=== PATIENT | male | born 1990 | race Caucasian/White ===

== ENCOUNTER 2016-07-15 15:36 | Emergency (ER) | payer MEDICAID ==
[~2016-07-15] VITALS: Ht 182.9 cm; Wt 97.3 kg
[2016-07-15] MEDS ORDERED: METHOCARBAMOL 1,000 MG in DEXTROSE 5% 100 ML IV ONE (16:30)
[2016-07-15] MEDS ORDERED: KETOROLAC 30 MG/1 ML IVPush ONE (16:30)
[2016-07-15] MEDS ORDERED: SODIUM CHLORIDE FLUSH 10ML SYR IVF ONE (16:30)
[2016-07-15] MEDS ORDERED: KETOROLAC 30 MG/1 ML ONE ×2 (16:46→16:48)
[2016-07-15 17:43] VITALS: BP 120/60
== END 2016-07-15 17:44 | disposition home or self-care (01) ==
LOC: ED 17:10
DX: S39.012A Strain of muscle, fascia and tendon of lower back, initial encounter (principal); X58.XXXA Exposure to other specified factors, initial encounter; Y93.89 Activity, other specified; Y92.89 Other specified places as the place of occurrence of the external cause; Y99.8 Other external cause status
CPT/HCPCS: 81003; 96365; 96375; 99284; J1885; J2800; 96372

== ENCOUNTER 2016-10-17 10:11 | Emergency (ER) | payer MEDICAID ==
[~2016-10-17] VITALS: Ht 180.3 cm; Wt 83.6 kg
[2016-10-17 10:25] VITALS: BP 147/81
[2016-10-17] MEDS ORDERED: IBUPROFEN 200 MG TABLET PO ONE (12:00)
[2016-10-17] MEDS ORDERED: IBUPROFEN 200 MG TABLET ONE (12:28)
[2016-10-17 12:32] LABS: IS PT STATUS REG ER OR PRE ER? YES
== END 2016-10-17 13:50 | disposition home or self-care (01) ==
LOC: ED 13:35
DX: M25.511 Pain in right shoulder (principal); F17.210 Nicotine dependence, cigarettes, uncomplicated; F12.10 Cannabis abuse, uncomplicated; X50.0XXA Overexertion from strenuous movement or load, initial encounter; X50.1XXA Overexertion from prolonged static or awkward postures, initial encounter; Y93.84 Activity, sleeping; Y99.8 Other external cause status; Y92.009 Unspecified place in unspecified non-institutional (private) residence as the place of occurrence of the external cause
CPT/HCPCS: 36415; 84484; 93005; 99285

== ENCOUNTER 2020-04-26 16:12 | Emergency (ER) | payer MEDICAID, OTHER ==
[~2020-04-26] VITALS: Ht 177.8 cm; Wt 102.9 kg
--- NOTE | 2020-04-26 17:24 | NUR ---
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
--- NOTE | 2020-04-26 17:36 | NUR ---
PT AMBULATORY TO ROOM 7 W/ C/O RLQ ABD PAIN STARTED SUNDAY NIGHT. PT STATES HE WAS FINE AND ATE A PIECE OF CHICKEN AND SHORTLY AFTER BEGAN TO HAVE RLQ ABD PAIN. PT DENIES ANY N/V/D. NO ONE ELSE SICK. A;LSO STATES DIFFICULTY URINATING/HAVING BM SINCE PAIN STARTED. PT RESTING ON GURNEY. NADN. MONITORS APPLIED. VSS.
[2020-04-26 17:47] LABS: BASOPHILS % (AUTO) 1 % (0-1); EOSINOPHILS % (AUTO) 2 % (1-7); LYMPHOCYTES % (AUTO) 26 % (22-44); MEAN CORPUSCULAR HEMOGLOBIN 30.8 pg (27.5-34.5); MEAN PLATELET VOLUME 8.7 fL (7.4-10.4); MONOCYTES % (AUTO) 11 % (2-9); NEUTROPHILS % (AUTO) 60 % (42-75); PLATELET COUNT 263 x10^3/uL (130-400); RED BLOOD COUNT 5.14 x10^6/uL (4.38-5.82); RED CELL DISTRIBUTION WIDTH 13.3 % (9.4-14.8)
[2020-04-26 17:51] LABS: MICROSCOPIC NOT IND
[2020-04-26 17:52] LABS: MD NO
[2020-04-26 18:00] LABS: ALANINE AMINOTRANSFERASE 48 U/L (12-78); ALBUMIN 4.5 g/dL (3.4-5.0); ANION GAP 11 mmol/L (5-15); CALCIUM 9.2 mg/dL (8.5-10.1); CHLORIDE 109 mmol/L (98-107); CREATININE 1.15 mg/dL (0.7-1.3)
[2020-04-26 18:02] LABS: ALKALINE PHOSPHATASE 60 U/L (45-117); BILIRUBIN,TOTAL 0.6 mg/dL (0.2-1.0); TOTAL PROTEIN 7.7 g/dL (6.4-8.2)
--- NOTE | 2020-04-26 18:15 | NUR ---
PT CHART REVIEWED AND PLACED FOR RECHECK.
[2020-04-26 18:45] VITALS: BP 122/62
--- NOTE | 2020-04-26 18:45 | NUR ---
PT RESTING ON GURNEY. NADN. FRANK.
[2020-04-26] MEDS ORDERED: HYDROcodone/APAP 5/325 TABLET ONE (18:58)
[2020-04-26] MEDS ORDERED: HYDROcodone/APAP 5/325 TABLET PO ONE (19:00)
== END 2020-04-26 19:24 | disposition home or self-care (01) ==
LOC: ED 17:30
DX: R10.31 Right lower quadrant pain (principal)
CPT/HCPCS: 36415; 74176; 80053; 81003; 83690; 85025; 99284